=== PATIENT | male | born 1955 | race African-American/Black ===

== ENCOUNTER 2019-08-21 09:16 | Emergency (ER) | payer MEDICARE ==
[~2019-08-21] VITALS: Ht 175.3 cm; Wt 89.9 kg
[2019-08-21] MEDS ORDERED: KETOROLAC 30MG/ML VIAL IV STA (11:16)
[2019-08-21] MEDS ORDERED: ONDANSETRON HCL 4MG/2ML INJ IV STA (11:16)
[2019-08-21] MEDS ORDERED: SODIUM CHLORIDE 0.9% 1,000 ML IV ONE ×3 (11:16→13:00)
[2019-08-21 11:33] LABS: BASOPHILS % 0.7 % (0.0-2.0); EOSINOPHILS % 0.6 % (0.0-5.0); HEMATOCRIT. 41.2 % (42.0-52.0); HEMOGLOBIN. 13.5 g/dL (14.0-18.0); LYMPHOCYTES % 19.3 % (20.0-50.0); MEAN CORPUSCULAR HEMOGLOBIN 27.9 pg (28.0-32.0); MEAN CORPUSCULAR VOLUME 84.9 fL (80.0-94.0); MEAN PLATELET VOLUME 9.4 fl (7.4-10.4); MONOCYTES % 7.3 % (2.0-8.0); NEUTROPHILS % 72.1 % (40.0-76.0); PLATELET 775 x1000/uL (130-400); RED BLOOD CELL COUNT 4.85 mill/uL (4.7-6.1); RED CELL DISTRIBUTION WIDTH 14.7 % (11.6-14.6)
[2019-08-21 11:50] LABS: CLARITY URINE CLEAR (CLEAR); COLOR URINE YELLOW (YELLOW); KETONES URINE 3+ (NEGATIVE); LEUKOCYTE ESTERASE URINE NEGATIVE (NEGATIVE); NITRITE URINE NEGATIVE (NEGATIVE); OCCULT BLOOD URINE NEGATIVE (NEGATIVE); PROTEIN URINE NEGATIVE (NEGATIVE); UROBILINOGEN URINE 0.2 E.U./dL (0.2-1.0)
[2019-08-21 12:03] LABS: CHLORIDE 98 mEq/L (98-107)
[2019-08-21] MEDS ORDERED: INSULIN REGULAR (HUMULIN R) 300UNITS/3ML SUBCUT ONE (13:00)
[2019-08-21 15:17] VITALS: BP 120/62
== END 2019-08-21 15:30 | disposition home or self-care (01) ==
LOC: ER 09:16 → EDBD 09:16 → ER 15:30
DX: E11.65 Type 2 diabetes mellitus with hyperglycemia (principal); R51 Headache; E86.0 Dehydration; M79.10 Myalgia, unspecified site; I10 Essential (primary) hypertension; R53.1 Weakness
CPT/HCPCS: 36415; 70450; 71045; 80053; 81003; 82962; 85025; 93005; 96361; 96372; 96374; 96375; 99284; J1815; J1885; J2405; J7030